=== PATIENT | female | born 1995 | race Caucasian/White ===

== ENCOUNTER 2019-06-17 21:17 | Emergency (ER) | payer OTHER ==
[~2019-06-17] VITALS: Ht 165.1 cm; Wt 93.4 kg
[2019-06-17 21:21] VITALS: Ht 165.1 cm; Wt 93.4 kg
[2019-06-17 23:40] LABS: microscopic required? NO
[2019-06-17 23:53] LABS: BASOPHIL % 0.5 % (0-2); PLATELET COUNT 381 x10^3mcL (130-400); RED CELL DISTRIBUTION WIDTH 13.5 % (11.5-14.5)
[2019-06-17 23:53] LABS: UA SPECIFIC GRAVITY >=1.030 (1.005-1.035); urine erythrocyte NEGATIVE (NEGATIVE)
[2019-06-18 00:02] LABS: CALCIUM 8.4 mg/dL (8.5-10.1); CARBON DIOXIDE 25.4 mmol/L (21-32); CHLORIDE SERUM 105 mmol/L (98-107); CREATININE SERUM 0.8 mg/dL (0.6-1.0); GFR1 > 60 mL/min; GLUCOSE SERUM 91 mg/dL (74-106); POTASSIUM SERUM 3.9 mmol/L (3.5-5.1); SODIUM SERUM 140 mmol/L (136-145)
[2019-06-18 00:07] LABS: ALBUMIN 3.8 g/dL (3.4-5.0); ALKALINE PHOSPHATASE 57 U/L (46-116); ALT/SGPT 15 U/L (14-59); AST/SGOT 15 U/L (15-37); BILIRUBIN TOTAL 0.4 mg/dL (0.20-1.00); LIPASE 104 IU/L (73-393)
[2019-06-18 04:55] VITALS: BP 127/77
== END 2019-06-18 04:55 | disposition home or self-care (01) ==
LOC: ED 21:17
PROVIDERS: Emergency Medicine
DX: R10.31 Right lower quadrant pain (principal); R10.32 Left lower quadrant pain; R11.0 Nausea
CPT/HCPCS: 36415; J1885; Q0162